=== PATIENT | male | born 2000 | race Asian ===

== ENCOUNTER 2020-10-08 10:37 | Emergency (ER) | payer OTHER, SELFPAY ==
--- NOTE | 2020-10-08 10:45 | ED.SKABFB ---
HPI - Skin/Abscess/Foreign Bdy General Chief complaint: Skin/Abscess/Foreign Body Stated complaint: Insect Bite Time Seen by Provider: 10/08/20 10:46 Source: patient and RN notes reviewed Mode of arrival: ambulatory Limitations: no limitations History of Present Illness HPI narrative: 20-year-old male presents to the [facility] with complaints of an insect bite to the lower left back. States that he was stung yesterday. Wanted know what he was stung by. No redness or swelling noted. No trouble breathing. No chest pain or shortness of breath. Related Data Home Medications Medication Instructions Recorded Confirmed famotidine 20 mg PO DAILY 10/08/20 10/08/20 Allergies Allergy/AdvReac Type Severity Reaction Status Date / Time No Known Allergies Allergy Verified 10/08/20 10:53 Review of Systems Review of Systems: All systems reviewed & are unremarkable except as noted in HPI and below Constitutional: Constitutional: Reports no additional constitutional complaints Eyes: Eyes: Reports no additional eye complaints ENT: Reports system reviewed and no additional complaints, except as documented Cardiovascular: Cardiovascular: Reports no additional cardiovascular complaints Respiratory: Respiratory: Reports no additional respiratory complaints Gastrointestinal: Gastrointestinal: Reports no additional gastrointestinal complaints Musculoskeletal: Musculoskeletal: Reports no additional musculoskeletal complaints Integumentary/Breasts: Skin/Breast: Reports as per HPI Comments: Insect sting left lower back Neurologic: Reports system reviewed and no additional complaints, except as documented Psychiatric: Psychiatric: Reports no additional psychiatric complaints Allergic/Immunologic: Allergic/Immunologic: Reports no additional allergic/immunologic complaints PMFSH Past Medical History Medical History Asthma Surgical History Surgical History (Updated 10/08/20 @ 18:03 by Diane Hess) No significant past surgical history Comments At the time of my signature, I reviewed and agree with the nursing past medical, surgical, social, and family history. There is no relevant family history pertinent to the patient complaint. Exam Const: General: healthy appearing, no acute distress and alert Nutritional Appearance: well nourished Orientation/consciousness: patient oriented x3 Limitations: no limitations HENMT: Head: normal to inspection Ears: external ears normal, TM's normal bilaterally and EAC's normal Eyes: Conjunctivae: conjunctivae normal Pupils: Equal, round and reactive pupils present Neck: Neck: normal visual inspection, no lymphadenopathy and no meningeal signs Chest: Chest palpation & inspection: normal inspection of the chest Resp: Effort & Inspection: normal respiratory effort and no use of accessory muscles Auscultation: clear to auscultation bilaterally, no crackles, no rales, no rhonchi and no wheezes Cardio: Rate: regular rate Rhythm: regular rhythm GI: GI Palp: Yes Soft to palpation and No Tenderness to palpation present (GI) Back/Spine/Pelvis: Back: no CVA tenderness Skin: General skin exam: normal color Rashes: no rashes Wounds: no wounds Other: Left lower back very small, less than half centimeter round area, patient states that he was stung. No redness, signs of infection, signs of inflammation. Neuro: General: patient oriented x3, moves all extremities, no meningeal signs and no focal motor deficits Speech: normal speech Gait exam (Neuro): Normal gait present Extrem: General: normal to inspection and no pedal edema Psych: Appearance: grossly normal and well kempt Mental Status: mental status grossly normal Affect: normal affect Attitude: cooperative Thought content: Yes Normal thought content present Course Course Emergency Course: Discharge instructions reviewed with patient, as well as provided in writing per hans
[2020-10-08 10:49] VITALS: BP 106/71; PULSE 79; RESP 18; TEMP 36.7; O2SAT 99
== END 2020-10-08 11:14 | disposition home or self-care (01) ==
PROVIDERS: Emergency Provider Nurse Practitioner; PCP Physician Assistant
DX: S30.860A Insect bite (nonvenomous) of lower back and pelvis, initial encounter (principal); W57.XXXA Bitten or stung by nonvenomous insect and other nonvenomous arthropods, initial encounter; J45.909 Unspecified asthma, uncomplicated
CPT/HCPCS: 99202; G0463

== ENCOUNTER 2023-07-31 16:57 | Emergency (ER) | payer OTHER, SELFPAY ==
[2023-07-31 17:06] VITALS: BP 115/70; PULSE 88; RESP 16; TEMP 36.8; O2SAT 100
--- NOTE | 2023-07-31 17:08 | ED.SKABFB ---
HPI - Skin/Abscess/Foreign Bdy General Chief complaint: Skin/Abscess/Foreign Body Stated complaint: Face/Skin Irritation Time Seen by Provider: 07/31/23 17:07 Source: patient and RN notes reviewed Mode of arrival: ambulatory Limitations: no limitations History of Present Illness HPI narrative: 23-year-old male presents with concern for painful bumps on his face. He reports they had purulent green drainage. He reports there on bilateral cheeks. Denies fever, facial swelling. MD complaint: abscess/boil Related Data Home Medications Medication Instructions Recorded Confirmed albuterol sulfate 90 mcg/actuation 2 puff inhalation QID PRN sob 07/31/23 07/31/23 aerosol inhaler Allergies Allergy/AdvReac Type Severity Reaction Status Date / Time Penicillins AdvReac Rash Verified 07/31/23 17:10 Review of Systems Review of Systems: CONSTITUTIONAL: Denies malaise, chills, sweats, or fever. EYES: Denies redness, or discharge. ENT: Denies rhinorrhea, congestion, swollen lips, swollen tongue CARDIOVASCULAR: Denies chest pain, palpitations, or edema. RESPIRATORY: Denies cough or dyspnea. GASTROINTESTINAL: Denies abdominal pain, nausea, vomiting SKIN: Reports painful bumps on his face MUSCULOSKELETAL: Denies joint pain or myalgia. NEUROLOGIC: Denies headache. All systems reviewed & are unremarkable except as noted in HPI and below PMFSH Past Medical History Medical History Asthma Surgical History Surgical History (Updated 10/08/20 @ 18:03 by Diane Hess, [employer]) No significant past surgical history Comments At time of signature, agree with nursing past medical, surgical, social and family history. There is no relevant family history pertinent to the presenting complaint Exam Narrative: GENERAL: Well-appearing, well-nourished, and in no acute distress. HEAD: Normocephalic, atraumatic. EYES: PERRLA, conjunctivae clear, and EOMI. ENT: Mucous membranes moist. Oropharynx without edema, erythema or lesions. NECK: Supple. No lymphadenopathy CHEST: Clear to auscultation. No respiratory distress. HEART: Regular rate and rhythm. SKIN: Warm, dry. Patient has old acne scars, healing acne, left side of patient's face has 1 large 1 cm raised red area omits the German old acne scars, the right side of the face has two 1 cm raised red tender areas limit soled acne scars NEURO: Alert and oriented x3. PSYCH: Normal mood and affect Course Course Emergency Course: Patient is aware of diagnosis, understands and agrees to treatment plan. Anticipatory guidance given. Patient agrees to follow-up as directed and is aware of reasons to seek care at the emergency department. Portions of this record may have been created with voice recognition software Level of Care: Express Care Visit Vital Signs Vital signs: Vital Signs Temperature 98.2 F 07/31/23 17:06 Pulse Rate 88 07/31/23 17:06 Respiratory Rate 16 07/31/23 17:06 Blood Pressure 115/70 07/31/23 17:06 Pulse Oximetry 100 07/31/23 17:06 Oxygen Delivery Room Air 07/31/23 17:06 Temperature 98.2 F 07/31/23 17:06 Pulse Rate 88 07/31/23 17:06 Respiratory Rate 16 07/31/23 17:06 Blood Pressure 115/70 07/31/23 17:06 Pulse Oximetry 100 07/31/23 17:06 Oxygen Delivery Room Air 07/31/23 17:06 Reviewed. MDM - Skin/Abscess/Foreign Bdy MDM Narrative Medical decision making narrative: Does not appear at this time to be erythema multiforme, bullous, SJS, TEN; no evidence at this time to suggest RMSF, endocarditis or Lyme disease; patient looks well, nontoxic and is tolerating oral intake; no neurologic signs or symptoms; no headache, photophobia or neck pain; afebrile; appropriate for initial outpatient treatment; discussed the importance of follow-up, patient agrees; question, viral exanthema, contact dermatitis, allergic dermatitis, eczema, urticaria, abscess, acne. No soft palate or
== END 2023-07-31 17:25 | disposition home or self-care (01) ==
PROVIDERS: Emergency Provider Nurse Practitioner; PCP Physician Assistant
DX: L70.0 Acne vulgaris (principal); J45.909 Unspecified asthma, uncomplicated
CPT/HCPCS: 99213; G0463

== ENCOUNTER 2024-05-27 10:54 | Emergency (ER) | payer OTHER, SELFPAY ==
--- NOTE | 2024-05-27 11:04 | ED_ITS ---
HPI - Extremity Injury (Upper) General Chief Complaint: Extremity Problem,Nontraumatic Stated Complaint: right shoulder pain Time Seen by Provider: 05/27/24 10:56 Source: patient Mode of arrival: ambulatory Limitations: no limitations History of Present Illness HPI narrative: Patient is a 24-year-old male who presents with right shoulder pain for 12 days. Patient states he was lifting a TV at work and putting in a cart, and then later that evening his shoulder started hurting. Patient denies any obvious injury or popping. Patient states he use Tylenol ibuprofen and the pain subsided for several days. Patient states he was grocery shopping yesterday and caring multiple heavy bags. That evening shoulder pain started again. Patient denies any pain with range of motion but states there has been throbbing ache when sitting still for extended amount of time. Pain is also present on palpation. Related Data Home Medications ?Medication ?Instructions ?Recorded ?Confirmed ?Last Taken ?Type albuterol sulfate 90 mcg/actuation 2 puff inhalation QID PRN sob 07/31/23 05/27/24 Unknown History aerosol inhaler latanoprost 0.005 % eye drops 1 drp EACH EYE QPM 05/27/24 05/27/24 Unknown History Allergies Allergy/AdvReac Type Severity Reaction Status Date / Time Penicillins AdvReac Rash Verified 05/27/24 10:58 Review of Systems Review of Systems: All systems reviewed & are unremarkable except as noted in HPI and below Constitutional: Constitutional: Denies body ache(s), Denies chills, Denies fatigue, Denies fever(s), Denies headache(s), Denies malaise and Denies weakness Eyes: Eyes: Denies blurry vision, Denies irritation and Denies loss of vision ENT: Denies otalgia, Denies headache(s), Denies nasal discharge, Denies sinus pain and Denies sore throat Cardiovascular: Cardiovascular: Denies chest pain, Denies irregular heart r hythm and Denies dyspnea Respiratory: Respiratory: Denies dyspnea Gastrointestinal: Gastrointestinal: Denies abdominal pain, Denies melena, Denies hematochezia, Denies diarrhea, Denies nausea and Denies vomiting Musculoskeletal: Musculoskeletal: Denies back pain, Denies myalgias and Reports arthralgias Integumentary/Breasts: Skin/Breast: Denies pruritus and Denies rash Neurologic: Denies headache(s), Denies loss of vision and Denies weakness Psychiatric: Psychiatric: Reports no additional psychiatric complaints Endocrine: Endocrine: Denies fatigue PMFSH Past Medical History Medical History Asthma Surgical History Surgical History No significant past surgical history Comments At time of signature, agree with nursing past medical, surgical, social and family history. There is no relevant family history pertinent to the presenting complaint. Exam Const: General: cooperative, healthy appearing, comfortable, no acute distress and well nourished Nutritional Appearance: well nourished Baltazar entation/consciousness: patient oriented x3 Limitations: no limitations HENMT: Head: normal to inspection, normocephalic and atraumatic Ears: hearing grossly normal bilaterally and external ears normal Face/Nose/Sinus: Normal external nose present, normal facial exam and face symmetric Face and sinus: normal facial exam and face symmetric Mouth: Yes lip normal Eyes: General: appearance normal, both eyes and all related structures Alignment and Position: alignment normal and position normal Periorbital: periorbital findings normal Eyelids: eyelids normal Pupils: Equal, round and reactive pupils present EOM: EOMs intact bilaterally Neck: Neck: normal visual inspection, full ROM and supple Chest: Chest palpation & inspection: normal inspection of the chest Resp: Effort & Inspection: normal respiratory effort and able to speak in complete sentences Auscultation: clear to auscultation bilaterally Cardio: Rate: regular rate Rhythm: regular rhythm Heart sounds: S1 normal heart sound present and S2 normal heart sound present GI: Inspection: normal to inspection Back/Spine/Pelvis: Cervical Spine: cervical muscular tenderness (right side extending to shoulder) Skin: General skin exam: normal color and no rashes or lesions noted Neuro: General: patient oriented x3 and moves all extremities Cranial nerves: Yes Equal, round and reactive pupils present Speech: normal speech Gait exam (Neuro): Normal gait present Extrem: General: normal to inspection, full ROM and no edema Right upper extremity: shoulder/upper arm normal to inspection, axillary nerve sensory function normal and normal ROM; no tenderness, no swelling and no deformity and elbow/forearm normal to inspection and normal ROM; no tenderness and no swelling Psych: Appearance: grossly normal and well kempt Mental Status: mental status grossly normal Speech and movement: Normal speech and movement present Affect: normal affect Attitude: cooperative Thought process: Normal thought process present Course Course Emergency Course: Patient is aware of diagnosis, understands and agrees to treatment plan. Anticipatory guidance given. Patient agrees to follow-up as directed and is aware of reasons to seek care at the emergency department. Portions of this record may have been created with voice recognition software Level of Care: Express Care Visit Vital Signs Vital signs: Reviewed MDM - Extremity Injury (Upper) MDM Narrative Medical decision making narrative: Pt well hydrated appearing, in no respiratory distress, hemodynamically stable. Recommend supportive care. The patient is stable at time of discharge the clinical impression was discussed and the patient was given the opportunity to ask questions, which were addressed as completely as possible given the information available at present. Anticipatory guidance and return to care precautions were discussed and the importance of primary care follow-up was stressed and encouraged. The patient voiced understanding of the plan, indications to return, and the need for follow-up. Exam findings show no acute concerns or changes Patient is appropriate for outpatient treatment and follow-up. Differential Diagnosis Differential diagnosis: Likely dislocation of shoulder, fracture of clavicle and other (Shoulder strain, cervical muscle strain, rotator cuff injury) Medical Records Attestation: I reviewed the patient's medical records. Discharge Plan Discharge Clinical Impression: Muscle strain of right shoulder Patient Disposition: Home Condition: Stable Instructions: Muscle Strain (ED) Additional Instructions: Avoid activities that cause pain until the pain subsides. Ice to the area 20-30 minutes 4-6 times a day For pain, you may take: Tylenol 650-1000mg by mouth every 4-6 hours. Do not exceed 4000mg in 24 hours. Advil (Ibuprofen) 600 mg by mouth every 6 hours. Do not exceed 2400mg in 24 hours. 8 AM: Tylenol 11 AM: Ibuprofen 2 PM: Tylenol 5 PM: Ibuprofen 8 PM: Tylenol 11 PM: Ibuprofen 2 AM: Tylenol 5 AM: Ibuprofen Use lidocaine patches 12 hours on and 12 hours off. Use muscle relaxers as needed. They may make you drowsy to do not drive or operate machinery while taking Follow up with your primary care provider if the condition is not improving within 1 week. If the condition worsens with numbness, tingling, decrease sensation with weakness seek treatment in the emergency room immediately. Patient Language: Estonian Prescriptions: New baclofen 10 mg tablet 10 mg PO BID Qty: 10 0RF lidocaine 5 % adhesive patch,medicated 1 patch topical DAILY Qty: 15 0RF Rx Instructions: leave on most painful area for up to 12 hrs No Action latanoprost 0.005 % drops 1 drp EACH EYE QPM albuterol sulfate 90 mcg/actuation HFA aerosol inhaler 2 puff INHALATION QID PRN (Reason: sob) clindamycin-benzoyl peroxide 1.2 %(1 % base) -5 % gel 1 applic topical QPM Qty: 45 0RF Follow-up/Referrals: Coy,ILA Newman [Primary Care Provider] - 3 Days Stand Alone Forms: Work/School Release IP Time of Disposition: 11:21
[2024-05-27 11:05] VITALS: BP 111/77; PULSE 84; RESP 20; TEMP 36.8; O2SAT 100
== END 2024-05-27 11:29 | disposition home or self-care (01) ==
PROVIDERS: Emergency Provider Nurse Practitioner Family; PCP Physician Assistant
DX: S46.911A Strain of unspecified muscle, fascia and tendon at shoulder and upper arm level, right arm, initial encounter (principal); X58.XXXA Exposure to other specified factors, initial encounter; J45.909 Unspecified asthma, uncomplicated
CPT/HCPCS: 99213; G0463

== ENCOUNTER 2024-06-15 10:59 | Emergency (ER) | payer OTHER, SELFPAY ==
--- NOTE | 2024-06-15 11:02 | ED.URI ---
HPI - URI/Sore Throat General Chief Complaint: Upper Respiratory Infection Stated Complaint: throat hurts Time Seen by Provider: 06/15/24 11:02 Source: patient Mode of arrival: ambulatory Limitations: no limitations History of Present Illness HPI Narrative: Everett is a 24-year-old male patient presenting to the clinic today with complaints of sore throat x5 days. He reports occasionally it hurts when he swallows but denies any constant pain. Pain is more on the right side of his throat. Denies any fevers, chills, body aches, runny nose, cough, or nasal drainage. Related Data Home Medications ?Medication ?Instructions ?Recorded ?Confirmed ?Last Taken ?Type albuterol sulfate 90 mcg/actuation 2 puff inhalation QID PRN sob 07/31/23 05/27/24 Unknown History aerosol inhaler latanoprost 0.005 % eye drops 1 drp EACH EYE QPM 05/27/24 05/27/24 Unknown History Allergies Allergy/AdvReac Type Severity Reaction Status Date / Time Penicillins AdvReac Rash Verified 05/27/24 10:58 Review of Systems Review of Systems: Pertinent positives per HPI. Patient denies any fever, chills, rash, headache, visual changes, dizziness, cough, shortness of breath, chest pain, palpitations, nausea, vomiting, diarrhea, constipation, abdominal pain, or any urinary issues. PMFSH Past Medical History Medical History Asthma Surgical History Surgical History No significant past surgical history Comments At the time of my signature, I reviewed and agree with the nursing past medical, surgical, social, and family history. There is no relevant family history pertinent to the patient complaint. Exam Narrative: General: Well-developed, well nourished, in no apparent distress Head: Normocephalic, atraumatic Eyes: Pupils equally round and reactive to light bilaterally, EOM intact, sclera and conjunctive clear, no discharge, lids normal Ears: TMs intact and clear, ear canals clear, no drainage, grossly hearing normal. Nose: Nares patent, no discharge, no inflammation, no sinus tenderness. Mouth: Oral pharynx mildly red without lesions or masses, good dentition, MMM. Neck: Supple, trachea midline, no enlargement of anterior or posterior cervical nodes, no thyroid masses or goiter palpable. Cardio: Regular rate and rhythm, s1 and s2 normal, no murmur appreciated. Resp: Clear to auscultation bilaterally, no rhonchi, rales, wheezing or rubs Course Course Emergency Course: Portions of this record may have been created with voice recognition software. Level of Care: Express Care Visit Vital Signs Vital signs: Vital signs reviewed MDM - URI/Sore Throat MDM Narrative Medical decision making narrative: At the time of visit patient is resting comfortably on the exam table. Patient appears to be nontoxic. Labs: Strep test was negative in the clinic today. We will send strep for culture. Plan: I suspect patient has pharyngitis. Would recommend follow-up with his PCP to have his thyroid checked. Is reporting some pain to the right side of his throat near the thyroid gland. Supportive measures were discussed with the patient and they voiced understanding discharge instructions and agrees to treatment plan. Return precautions reviewed Differential Diagnosis Differential diagnosis: Likely upper respiratory infection, otitis media, sinusitis, viral infection, bronchitis, influenza, pharyngitis and other (COVID) Discharge Plan Discharge Clinical Impression: Pharyngitis Qualifiers: Pharyngitis/tonsillitis etiology: unspecified etiology Qualified Code(s): J02.9 - Acute pharyngitis, unspecified Patient Disposition: Home Condition: Stable Instructions: Antibiotic Form, Pharyngitis (ED) Additional Instructions: Strep test was negative in the clinic today. We will send strep for culture. Increase fluids and stay well hydrated Tylenol/motrin for pain/fever Flonase and OTC antihistamines as directed Vicks vapor rub to open sinuses Sinus rinses for congestion Cepacol spray, cough drops, throat lozenges, warm tea with honey/lemon, gargle salt water to soothe throat BRAT diet for diarrhea Clear liquids x 24 hours then advance as tolerated for nausea/vomiting Go to the ED if you develop a worsening in your condition- high fever not controlled by Tylenol or Motrin, dehydration, weakness, lethargy, shortness of breath, or chest pain. Follow up with your PCP in 3-5 days if symptoms persist. Patient Language: Serbian Prescriptions: No Action latanoprost 0.005 % drops 1 drp EACH EYE QPM baclofen 10 mg tablet 10 mg PO BID Qty: 10 0RF lidocaine 5 % adhesive patch,medicated 1 patch topical DAILY Qty: 15 0RF Rx Instructions: leave on most painful area for up to 12 hrs albuterol sulfate 90 mcg/actuation HFA aerosol inhaler 2 puff INHALATION QID PRN (Reason: sob) clindamycin-benzoyl peroxide 1.2 %(1 % base) -5 % gel 1 applic topical QPM Qty: 45 0RF Follow-up/Referrals: Coy,ILA Newman [Primary Care Provider] - Time of Disposition: 11:32 Quality NIHSS Nursing Documentation ED NIHSS nursing documentation: reviewed/agree
[2024-06-15 11:12] VITALS: BP 121/72; PULSE 78; RESP 18; TEMP 36.7; O2SAT 98
[2024-06-15 11:20] LABS: EDSTREPNEGPOS1 Negative (Negative)
== END 2024-06-15 11:40 | disposition home or self-care (01) ==
PROVIDERS: Emergency Provider Nurse Practitioner Family; PCP Physician Assistant
DX: J02.9 Acute pharyngitis, unspecified (principal); J45.909 Unspecified asthma, uncomplicated
CPT/HCPCS: 87081; 87880; 99213; G0463

== ENCOUNTER 2024-06-28 12:07 | Outpatient (CLI) | payer OTHER, SELFPAY ==
--- NOTE | ~2024-06-28 | XR_ITS ---
EXAM: XR shoulder RT min 2V DATE: 06/28/2024 12:36 HISTORY: Pain in rt shoulder, 05/15/24 NKI . COMPARISON: None available. FINDINGS: Normal mineralization. No fracture or dislocation. No lytic or blastic lesion. Joint space s are maintained. No erosion or periosteal change. Soft tissues within normal limits. IMPRESSION: Normal right shoulder radiograph findings. If pain persists or clinical suspicion of inju ry/abnormality is high, recommend MRI of the shoulder. Reviewed, dictated and finalized at location K. IMPRESSION: Normal right shoulder radiograph findings. If pain persists or clin ical suspicion of injury/abnormality is high, recommend MRI of the shoulder.
--- OUTSIDE RECORDS SUMMARY | 2024-06-28 12:15 | XMS_ITS | Data Portability ---
Author Organization [facility] Address [address] [place] [address] Care Team Providers Care Chief Dispatcher Service Name Role Phone VICENTE MANN Primary Care Provider Assessment No assessment recorded. Plan of Treatment Reminders Order Date Submit Date Provider Last Modified By Organization Details Last Modified Time Details Appointments ANY 15 2024 11:45A M ILA LEON Not available Not available Not available Lab CMP, serum or plasma 2023 024 SIVAKUMAR Greene, [address], [address], [place], [address], 03/08/2023 08:12:17 CBC w/ auto diff 2023 024 SIVAKUMARSIMI Greene, [address]22 [address], [address], [place], [address], 03/08/2023 08:12:17 lipid panel, serum 2023 024 SIVAKUMARSIMI Greene, [address], [address], [place], [address], 03/08/2023 08:12:16 HbA1c (hemoglob in A1c), blood 2023 024 SIVAKUMARSIMI Greene, [address]22 [address], [address], [place], [address], 03/08/2023 06:49:16 Referral dermatolo gist referral 2023 024 [email or web address] Shaista Lee MD (Dermatology) , [address], [place], [address], 08/26/2023 07:54:03 Procedures None recorded. Surgeries None recorded. Imaging None recorded. Medication Orders benzoyl peroxide 5 % topical cleanser 2023 024 [facility] [address], [place], [address], 09/24/2023 12:47:12 benzoyl peroxide 5 % topical cleanser 2023 024 [facility] [address], [place], [address], 08/11/2023 17:28:44 tretinoin 0.025 % topical cream 2023 024 [facility] [address], [place], [address], 08/11/2023 17:28:43 clindamyc in 1 % topical gel 2023 024 [facility] [address], [place], [address], 08/11/2023 17:28:43 albuterol sulfate HFA 90 mcg/actua tion aerosol inhaler 2023 024 [facility] [address], [place], [address], 03/05/2023 12:27:37 triamcino lone acetonide 0.1 % topical cream 2023 024 [facility] [address], [place], [address], 03/05/2023 12:27:36 Patient TargetsNo targets recorded. Patient Instructions Encounter Date Encounter Id Patient Instructions Last Modified By Organization Details Last Modified Time 01/24/2022 [id number] asthma in adults : care instructions Not available 01/24/2022 12:45:14 controlling your asthma: care instructions Not available 01/24/2022 12:45:15 03/05/2023 [id number] asthma in adults : care instructions Not available 03/05/2023 11:36:52 controlling your asthma: care instructions Not available 03/05/2023 11:36:52 08/11/2023 [id number] acne: care instructions Not available 08/12/2023 09:27:09 09/24/2023 [id number] acne: care instructions Not available 09/24/2023 12:47:04 - peroxide wash every other day - clinda gel twice daily - tretinoin at night only (will start every other night)as deactivated by light. He is advised sand which method to avoid over-drying. will increase dose after 4-8 weeks if tolerating well. Not available 09/24/2023 13:04:17 Reason for Referral Intertype Operator Referral for C ystic acne Referring Physician: Vicente Mann, Hospital Unit Coordinator, Encounter Date: 08/11/2023 Physical Therapist Referral for Pain of right shoulder region Referring Physician: Vicente Mann Hospital Unit Coordinator, Encounter Date: 06/28/2024 Results Created Date Observation Date Name Description Value Unit Range Abnormal Flag Note LastModifiedBy Organization Detail LastModifiedTime 03/07/19 24 03/08/2023 HEMOG LOBIN A1C hemoglobin A1C 5.7 % 4.8-5. 6 above high normal Predi abete s: 5.7 - 6.4 Diabe omar: >6.4 Glyce kacey contr ol for adult s with diabe omar: <7.0 Not Available [facility] ([facility]) [address] [facility], [place], [address], 03/08/2023 06:49:16 03/07/19 24 03/08/2023 LIPID PANEL cholesterol, total 148 mg/dL 100-19 9 Not Available [facility] ([facility]) [address] [facility] [facility], [place], [address], 03/08/2023 08:12:16 03/07/19 24 03/08/2023 LIPID PANEL triglyceride s 57 mg/dL 0-149 Not Available [facility]) [address] [facility] [place], [address], 03/08/2023 08:12:16 03/07/19 24 03/08/2023 LIPID PANEL HDL cholesterol 60 mg/dL >39 Not Available [facility] [address] [place], [address], 03/08/2023 08:12:16 03/07/19 24 03/08/2023 LIPID PANEL VLDL cholesterol brandy 12 mg/dL 5-40 Not Available [facility]) [address] [place], [address], 03/08/2023 08:12:16 03/07/19 24 03/08/2023 LIPID PANEL LDL chol calc ([facility]) 76 mg/dL 0-99 Not Available [facility]) [address] [place], [address], 03/08/2023 08:12:16 03/07/19 24 03/08/2023 COMP. METAB OLIC PANEL (14) glucose 99 mg/dL 70-99 Not Available [facility] ([facility]) [address] [place], [address], 03/08/2023 08:12:17 03/07/19 24 03/08/2023 COMP. METAB OLIC PANEL (14) BUN 8 mg/dL 6-20 Not Available [facility] ([facility]) [address] [place], [address], 03/08/2023 08:12:17 03/07/19 24 03/08/2023 COMP. METAB OLIC PANEL (14) creatinine 0.90 mg/dL 0.76-1 .27 Not Available [facility] ([facility]) [address] [place], [address], 03/08/2023 08:12:17 03/07/19 24 03/08/2023 COMP. METAB OLIC PANEL (14) eGFR 122 mL/mi n/1.7 3 >59 Not Available [facility] ([facility]) [address] [facility], [place], [address], 03/08/2023 08:12:17 03/07/19 24 03/08/2023 COMP. METAB OLIC PANEL (14) BUN/creatini ne ratio 9 9-20 Not Available [facility] ([facility]) [address] [facility], [place], [address], 03/08/2023 08:12:17 03/07/19 24 03/08/2023 COMP. METAB OLIC PANEL (14) sodium 139 mmol/ L 134-14 4 Not Available [facility] ([facility]) [address] [facility], [place], [address], 03/08/2023 08:12:17 03/07/19 24 03/08/2023 COMP. METAB OLIC PANEL (14) potassium 4.3 mmol/ L 3.5-5. 2 Not Available [facility] ([facility]) [address] [facility], [place], [address], 03/08/2023 08:12:17 03/07/19 24 03/08/2023 COMP. METAB OLIC PANEL (14) chloride 100 mmol/ L 96-106 Not Available [facility] ([facility]) [address] [facility], [place], [address], 03/08/2023 08:12:17 03/07/19 24 03/08/2023 COMP. METAB OLIC PANEL (14) carbon dioxide, total 26 mmol/ L 20-29 Not Available [facility] ([facility]) [address] [facility], [place], [address], 03/08/2023 08:12:17 03/07/19 24 03/08/2023 COMP. METAB OLIC PANEL (14) calcium 9.6 mg/dL 8.7-10 .2 Not Available [facility] ([facility]) [address] [place], [address], 03/08/2023 08:12:17 03/07/19 24 03/08/2023 COMP. METAB OLIC PANEL (14) protein, total 6.8 g/dL 6.0-8. 5 Not Available [facility] ([facility]) [address] [place], [address], 03/08/2023 08:12:17 03/07/19 24 03/08/2023 COMP. METAB OLIC PANEL (14) albumin 4.2 g/dL 4.3-5. 2 below low normal Not Available [facility] ([facility]) [address] [place], [address], 03/08/2023 08:12:17 03/07/19 24 03/08/2023 COMP. METAB OLIC PANEL (14) globulin, total 2.6 g/dL 1.5-4. 5 Not Available [facility] ([facility]) [address] [place], [address], 03/08/2023 08:12:17 03/07/19 24 03/08/2023 COMP. METAB OLIC PANEL (14) A/G ratio 1.6 1.2-2. 2 Not Available [facility] ([facility]) [address] [place], [address], 03/08/2023 08:12:17 03/07/19 24 03/08/2023 COMP. METAB OLIC PANEL (14) bilirubin, total 0.7 mg/dL 0.0-1. 2 Not Available [facility] ([facility]) [address] [place], [address], 03/08/2023 08:12:17 03/07/19 24 03/08/2023 COMP. METAB OLIC PANEL (14) alkaline phosphatase 55 IU/L 44-121 Not Available [facility]) [address] [facility], [place], [address], 03/08/2023 08:12:17 03/07/19 24 03/08/2023 COMP. METAB OLIC PANEL (14) AST (SGOT) 13 IU/L 0-40 Not Available [facility] ([facility]) [address] [facility], [place], [address], 03/08/2023 08:12:17 03/07/19 24 03/08/2023 COMP. METAB OLIC PANEL (14) ALT (SGPT) 8 IU/L 0-44 Not Available [facility] ([facility]) [address] [facility], [place], [address], 03/08/2023 08:12:17 03/07/19 24 03/08/2023 CBC WITH DIFFE RENTI AL/PL ATELE T WBC 5.2 x10e3 /uL 3.4-10 .8 Not Available [facility] ([facility]) [address] [place], [address], 03/08/2023 08:12:17 03/07/19 24 03/08/2023 CBC WITH DIFFE RENTI AL/PL ATELE T RBC 5.34 x10e6 /uL 4.14-5 .80 Not Available [facility] ([facility]) [address] [facility], [place], [address], 03/08/2023 08:12:17 03/07/19 24 03/08/2023 CBC WITH DIFFE RENTI AL/PL ATELE T hemoglobin 15.0 g/dL 13.0-1 7.7 Not Available [facility] ([facility]) [address] [place], [address], 03/08/2023 08:12:17 03/07/19 24 03/08/2023 CBC WITH DIFFE RENTI AL/PL ATELE T hematocrit 45.6 % 37.5-5 1.0 Not Available [facility] ([facility]) [address] [facility], [place], [address], 03/08/2023 08:12:17 03/07/19 24 03/08/2023 CBC WITH DIFFE RENTI AL/PL ATELE T MCV 85 fL 79-97 Not Available [facility] ([facility]) [address] [facility], [place], [address], 03/08/2023 08:12:17 03/07/19 24 03/08/2023 CBC WITH DIFFE RENTI AL/PL ATELE T MCH 28.1 pg 26.6-3 3.0 Not Available [facility] ([facility]) [address] [facility], [place], [address], 03/08/2023 08:12:17 03/07/19 24 03/08/2023 CBC WITH DIFFE RENTI AL/PL ATELE T MCHC 32.9 g/dL 31.5-3 5.7 Not Available [facility] ([facility]) [address] [facility], [place], [address], 03/08/2023 08:12:17 03/07/19 24 03/08/2023 CBC WITH DIFFE RENTI AL/PL ATELE T RDW 12.5 % 11.6-1 5.4 Not Available [facility] ([facility]) [address] [facility], [place], [address], 03/08/2023 08:12:17 03/07/19 24 03/08/2023 CBC WITH DIFFE RENTI AL/PL ATELE T platelets 308 x10e3 /uL 150-45 0 Not Available [facility] ([facility]) [address] [facility], [place], [address], 03/08/2023 08:12:17 03/07/19 24 03/08/2023 CBC WITH DIFFE RENTI AL/PL ATELE T neutrophils 64 % notest ab. Not Available [facility] ([facility]) [address] [facility], [place], [address], 03/08/2023 08:12:17 03/07/19 24 03/08/2023 CBC WITH DIFFE RENTI AL/PL ATELE T lymphs 24 % notest ab. Not Available [facility] ([facility]) [address] [facility], [place], [address], 03/08/2023 08:12:17 03/07/19 24 03/08/2023 CBC WITH DIFFE RENTI AL/PL ATELE T monocytes 8 % notest ab. Not Available [facility] ([facility]) [address] [facility], [place], [address], 03/08/2023 08:12:17 03/07/19 24 03/08/2023 CBC WITH DIFFE RENTI AL/PL ATELE T eos 3 % notest ab. Not Available [facility] ([facility]) [address] [facility], [place], [address], 03/08/2023 08:12:17 03/07/19 24 03/08/2023 CBC WITH DIFFE RENTI AL/PL ATELE T basos 1 % notest ab. Not Available [facility] ([facility]) [address] [place], [address], 03/08/2023 08:12:17 03/07/19 24 03/08/2023 CBC WITH DIFFE RENTI AL/PL ATELE T neutrophils (absolute) 3.4 x10e3 /uL 1.4-7. 0 Not Available [facility] ([facility]) [address] [place], [address], 03/08/2023 08:12:17 03/07/19 24 03/08/2023 CBC WITH DIFFE RENTI AL/PL ATELE T lymphs (absolute) 1.3 x10e3 /uL 0.7-3. 1 Not Available [facility] ([facility]) [address] [place], [address], 03/08/2023 08:12:17 03/07/19 24 03/08/2023 CBC WITH DIFFE RENTI AL/PL ATELE T monocytes(ab solute) 0.4 x10e3 /uL 0.1-0. 9 Not Available [facility] ([facility]) [address] [facility], [place], [address], 03/08/2023 08:12:17 03/07/19 24 03/08/2023 CBC WITH DIFFE RENTI AL/PL ATELE T eos (absolute) 0.2 x10e3 /uL 0.0-0. 4 Not Available [facility] ([facility]) [address] [facility], [place], [address], 03/08/2023 08:12:17 03/07/19 24 03/08/2023 CBC WITH DIFFE RENTI AL/PL ATELE T baso (absolute) 0.0 x10e3 /uL 0.0-0. 2 Not Available [facility] ([facility]) [address] [facility], [place], [address], 03/08/2023 08:12:17 03/07/19 24 03/08/2023 CBC WITH DIFFE RENTI AL/PL ATELE T immature granulocytes 0 % notest ab. Not Available [facility] ([facility]) [address] [facility], [place], [address], 03/08/2023 08:12:17 03/07/19 24 03/08/2023 CBC WITH DIFFE RENTI AL/PL ATELE T immature grans (abs) 0.0 x10e3 /uL 0.0-0. 1 Not Available [facility] ([facility]) [address] [place], [address], 03/08/2023 08:12:17 Result Notes None recorded. Problems Name Problem SNOMED Code Status Onset Date Resolution Date Notes Provider Name and Address Organization Details Recorded Time Asthma 868810998 Active 020 Not Available [facility], [facility] 1 13:56:13 Eczema 79894087 Active 020 Not Available [facility], [facility] 1 13:56:13 Glaucoma 61531228 Active 022 ILA LEON Attn: Accounting ,[address], [place], [address] , [facility] 2 10:06:55 Cystic acne 31312798 Active 024 ILA LEON Attn: Accounting ,[address], [place], [address] , [facility] 4 09:27:11 Problem Notes None recorded. Medical Equipment None Reported. Allergies Allergen ID Allergen Name Allergen Category Reaction Reaction Severity Criticality Documentation Date Start Date Code Code System Note Provider Name and Address Organization Details Recorded Time 036137 Product containin g penicilli n (product) medicatio n hives Not available Not available 02/25/2019 55486 8001 SNOMED Tyrell Marie MA [facility], [place] - [facility] 0 11:48:05 Medications Name Sig Start Date Stop Date Status Note LastModified by Organization Details LastModified Time cyclobenzap rine 10 mg tablet TAKE 1 TABLET BY MOUTH AT NIGHT BEFORE BEDTIME active Not Available Not Available No t Available latanoprost 0.005 % eye drops INSTILL 1 DROP INTO BOTH EYES AT NIGHT TIME active Not Available Not Available No t Available clindamycin HCl 300 mg capsule TAKE 1 CAPSULE BY MOUTH EVERY 8 HOURS FOR 7 DAYS 08/10 completed Not Available Not Available Not Available cetirizine 10 mg tablet TAKE 1 TABLET BY MOUTH EVERY DAY active Not Available Not Available No t Available tretinoin 0.025 % topical cream APPLY TO AFFECTED AREA EVERY DAY AT BEDTIME active Not Available Not Available No t Available meloxicam 15 mg tablet TAKE ONE TABLET DAILY, UNTIL COMPLETE active Not Available Not Available No t Available triamcinolo ne acetonide 0.1 % topical cream APPLY THIN COAT TO AFFECTED AREA TWICE A DAY active Not Available Not Available No t Available famotidine 20 mg tablet TAKE 1 TABLET BY MOUTH TWICE A DAY 03/05 completed Not Available Not Available Not Available clindamycin 1 % topical gel APPLY THIN COAT TO AFFECTED AREA TWICE A DAY active Not Available Not Available No t Available baclofen 10 mg tablet TAKE 1 TABLET BY MOUTH TWICE A DAY active Not Available Not Available No t Available cephalexin 500 mg capsule Take 1 capsule twice a day by oral route for 7 days. 01/09 completed Not Available Not Available Not Available lidocaine 5 % topical patch APPLY 1 PATCH TO SKIN DAILY LEAVE ON MOST PAINFUL AREA FOR UP TO 12 HRS active Not Available Not Available No t Available omeprazole 20 mg capsule,del ayed release Take 1 capsule every day by oral route for 30 days. 12/13 completed Not Available Not Available Not Available benzoyl peroxide 5 % topical cleanser APPLY SPARINGLY TO AFFECTED AREA EVERY DAY active Not Available Not Available No t Available scopolamine 1 mg over 3 days transdermal patch Apply 1 patch every 72 hours by transderm al route as needed. 12/13 completed Not Available Not Available Not Available methylpredn isolone 4 mg tablets in a dose pack TAKE 6 TABLETS ON DAY 1 DIRECTED ON PACKAGE AND DECREASE BY 1 TAB EACH DAY FOR A TOTAL OF 6 DAYS 06/28 completed Not Available Not Available Not Available albuterol sulfate HFA 90 mcg/actuati on aerosol inhaler INHALE 2 PUFFS EVERY 4-6 HOURS BY INHALATIO N ROUTE NEEDED. active Not Available Not Available No t Available fluticasone propionate 50 mcg/actuati on nasal spray,suspe nsion [place] 1 spray every day by intranasa l route. 2024 active Not Available Not Available Not Avai lable Vitals Date Recorded Body height Body mass index (BMI) Body weight Heart rate Oxygen saturation Oxygen saturation in Arterial blood by Pulse oximetry Systolic blood pressure Diastolic blood pressure Provider Name and Address Organization Details Last Updated DateTime 2 160.02 cm 22.5 kg/m2 46597.2 3 g 94 /min 100 % 100 % 114 mm[Hg] 68 mm[Hg] Adilia Almeida [place] - [facility] 2 12:22:47 Date Recorded Body height Body mass index (BMI) Body weight Heart rate Oxygen saturation Oxygen saturation in Arterial blood by Pulse oximetry Systolic blood pressure Diastolic blood pressure Provider Name and Address Organization Details Last Updated DateTime 4 160.02 cm 21.6 kg/m2 77377.2 7 g 88 /min 99 % 99 % 113 mm[Hg] 74 mm[Hg] Adilia Almeida MA [facility] 4 11:26:07 Date Recorded Body height Body mass index (BMI) Body weight Heart rate Oxygen saturation Oxygen saturation in Arterial blood by Pulse oximetry Systolic blood pressure Diastolic blood pressure Provider Name and Address Organization Details Last Updated DateTime 4 160.02 cm 20.9 kg/m2 02007.9 g 84 /min 98 % 98 % 115 mm[Hg] 73 mm[Hg] Adilia Almeida MA [facility] 4 17:11:52 Date Recorded Body height Body mass index (BMI) Body weight Heart rate Oxygen saturation Oxygen saturation in Arterial blood by Pulse oximetry Systolic blood pressure Diastolic blood pressure Provider Name and Address Organization Details Last Updated DateTime 4 160.02 cm 20.7 kg/m2 16293.3 1 g 102 /min 97 % 97 % 112 mm[Hg] 72 mm[Hg] Adilia Almeida MA [facility] 4 12:35:56 Date Recorded Body height Body mass index (BMI) Body weight Heart rate Oxygen saturation Oxygen saturation in Arterial blood by Pulse oximetry Systolic blood pressure Diastolic blood pressure Provider Name and Address Organization Details Last Updated DateTime 5 160.02 cm 20.9 kg/m2 36781.9 g 67 /min 97 % 97 % 107 mm[Hg] 72 mm[Hg] Adilia Almeida MA [facility] 5 12:25:41 Social History Question Answer Notes LastModified by Organizat ion Details LastModified Time Tobacco Smoking Status Never Smoker Tyrell Marie MA [facility], [facility] 02/25/2019 11:48:51 Do You Have An Advance Directive? No Information not available 02/25/2019 What Is Your Level Of Caffeine Consumption? None Information not available 02/25/2019 How Much Tobacco Do You Chew? None Information not available 02/25/2019 Which Illicit Or Recreational Drugs Have You Used? Pt Denies Information not available 02/25/2019 Hard Of Hearing Or Deaf In One Or Both Ears? No Information not available 02/25/2019 Legally Blind In One Or Both Eyes? No Information no t available 02/25/2019 Marital Status Single Informatio n not available 02/25/2019 What Was The Date Of Your Most Recent Tobacco Screening? 06/28/2024 Information not available 06/28/2024 At What Age Did You Start Smoking Tobacco? 0 N/a Information not available 01/10/2020 How Much Tobacco Do You Smoke? No Information not available 02/25/2019 Has Tobacco Cessation Counseling Been Provided? Yes Information not available 06/28/2024 On What Date Was Tobacco Cessation Counseling Provided? 06/28/2024 Information not available 06/28/2024 How Many Years Have You Smoked Tobacco? 0 Information not available 01/10/2020 Sex: Male Functional Status Question Answer Note LastModified by Organizat ion Details LastModified Time What is your level of alcohol consumption? None Information not available 02/25/2019 Do you or have you ever used smokeless tobacco? Never used smokeless tobacco Information not available 02/25/2019 Do you or have you ever used e-cigarettes or vape? Never used electronic cigarettes Information not available 02/25/2019 Mental Status None recorded. Family History Relationship Description Onset Age of this Age Resolved Age Notes LastModified by Organization Details LastModified Time Mother Hypertensive disorder operezma Not available 2019 11:48:32 Father Malignant neoplasm of prostate operezma Not available 2019 11:48:42 Father Malignant neoplasm of lung Not available 2023 12:24:10 Medical History Condition Response Coronary Artery Disease N Other N Atrial Fibrillation N High Blood Pressure N Kidney or Bladder Problems N Thyroid Problems N GI Problems N Depression N COPD N Blood Clots N Skin Problems N Anemia N Heart Attack (RI) N Anxiety Disorder N Diabetes N Muscle, Joint, or Bone Problems N Seizures/Epilepsy N Acid Reflux (GERD) N Cancer N Stroke N Asthma N Allergies N High Cholesterol N Hepatitis N Liver Disease N Headaches N Heart Failure N Osteoporosis N Immunizations Vaccine Type Date Status Note Provider Nam e and Address Organization Details Recorded Time COVID-19, mRNA, LNP-S, PF, 30 mcg/0.3 mL dose 1 completed Adilia Almeida MA null, [place] - [facility] 06/28/2024 12:20:56 HPV, quadrivalent 5 completed Not Available [facility], [facility] 06/28/2024 12:15:26 meningococcal MCV4P 5 completed Not Available [facility] 06/28/2024 12:15:26 HPV, quadrivalent 6 completed Not Available [facility] 06/28/2024 12:15:26 COVID-19, mRNA, LNP-S, PF, 30 mcg/0.3 mL dose 1 completed Not Available [facility] 06/28/2024 12:15:26 COVID-19, mRNA, LNP-S, PF, 30 mcg/0.3 mL dose 1 completed Not Available [facility] 06/28/2024 12:15:26 Tdap 4 completed ILA LEON Attn: Accounting[address] [place], [address], [facility] 03/05/2023 12:22:14 Past Encounters Encounter ID Performer Location Encounter Start Date Encounter Closed Date Diagnosis/Indication Diagnosis SNOMED-CT Code Diagnosis ICD10 Code Diagnosis Note [id number] ILA LEON [facility] [address] [place] [address] 02/25/2019 11:32:35 03/01/2019 09:52:01 Gastroesophageal reflux disease 445884865 K21.9 patient presents with acid reflux that started when he ate spicy food on new years. Since he has had belching and bloating. denies vomiting or dark stools. No fever. - omeprazole 20 mg qd x 1 month- f/u if no improvemen t or worsening- educated on GERD foods [id number] ILA LEON [facility] [address] [place] [address] 04/01/2019 13:57:38 04/04/2019 09:29:51 Infection of skin and/or subcutaneous tissue 80010966 L08.9 allergy to amoxicilli n, 10% eractivity to cephaloosp oring. Stop if develops new rash. Eczema 83692302 L30.9 patietn with hx of eczema. - triamcinol one bid x one week- aquaphor after shower and then apply vaseline on top- pat dry after showers- may wear gloves at [facility] [id number] ILA LEON [facility] [address] [place] [address] 01/10/2020 08:48:18 01/11/2020 09:21:12 Gastroesophageal reflux disease 666518251 K21.9 refills. switching to famotidine from omeprazole . - famotidine 20 mg- f/u if no improvemen t or worsening- educated on GERD foods Eczema 15211179 L30.9 patietn with hx of eczema. - triamcinol one bid x one week- aquaphor after shower and then apply vaseline on top- pat dry after showers- may wear gloves at [facility] [id number] ILA LEON [facility] [address] [place] [address] 12/24/2020 10:24:01 12/25/2020 15:30:28 Asthma 052175301 J45.909 controlled at this time. no hospitaliz ations or ER visits. uses inhaler on rare occasion. Gastroesop hageal reflux disease 426259091 K21.9 patient presents with acid reflux that started when he ate spicy food on new years. Since he has had belching and bloating. denies vomiting or dark stools. No fever. - omeprazole 20 mg qd x 1 month- f/u if no improvemen t or worsening- educated on GERD foods- avoid eating after 7pm- wait 2 hours after eating before laying down [id number] ILA LEON [facility] [address] [place] [address] 06/18/2021 11:32:33 06/19/2021 10:11:08 Seasonal allergic rhinitis 868417611 J30.2 allergies and post-nasal drip causing dry cough x 2 weeks. On exam turbinates are edematous and pale. throat slightly irritated without swelling. - zyrtec- flonase- f/u prn Asthma [id number] J45.90 9 controlled at this time. no hospitaliz ations or ER visits. uses inhaler on rare occasion. refill today [id number] ILA LEON [facility] [address] [place] [address] 12/13/2021 12:03:55 12/16/2021 10:13:53 Seasonal allergic rhinitis [id number] J30.2 refill - zyrtec- flonase- f/u prn Asthma [id number] J45.90 9 states he uses inhaler 2 puffs every night because he feels he may need it. will f/u on this in one month- lungs clear on exam Otalgia of left ear [id number] H92.02 left ear pain x 1 week with resolution of sx x 3 days. On exam TM visualized with all landmarks. canals are slightly irritated b/l w/o edema. No pain on exam. No cervical lymphadeno dafne. pharynx without erythema. [id number] ILA LEON [facility] [address] [place] [address] 01/24/2022 12:10:44 01/28/2022 15:37:25 Asthma [id number] J45.909 no longer using inhaler before bed and denies needing it.PEX: lungs are clear, RRR advised to only use it prnasthma is controlled , has not used it sicne last visitno hospitaliz ations in >1 year [id number] ILA LEON [facility] [address] [place] [address] 03/05/2023 11:16:45 03/05/2023 12:03:02 Asthma [id number] J45.909 controlled PEX: lungs are clear, RRR asthma is controlled , has not used it since last visitno hospitaliz ations in >1 year Adult heal th examination [id number] Z00.00 asthma/ecz sheri controlled labs to labcorptet anus shot Administra tion of diphtheria, pertussis, and tetanus vaccine [id number] Z23 given today Eczema [id number] L30.9 patietn with hx of eczema. - triamcinol one bid x one week- aquaphor after shower and then apply vaseline on top- pat dry after showers- may wear gloves at night for hands [id number] Fritz manzo MD [facility] [address] [place] [address] 08/11/2023 17:06:42 08/14/2023 22:01:51 Cystic acne 34171607 L70.0 pt with hx of cystic acne and extensive scarring and mutiple black heads - peroxide wash every other day- clinda gel bid- tretinoin at night only (will start every other night)as deactivate d by light. He is advised sand which method to avoid over-dryin g. will increase dose after 4-8 weeks if tolerating well.- derm referral- he advised he WILL peel due to skin cell turnover * stressed suncreen use [id number] Kishore Long MD [facility] [address] [place] [address] 09/24/2023 12:30:28 09/24/2023 12:46:18 Cystic acne [id number] L70.0 pt with hx of cystic acne and extensive scarring and mutiple black heads. some improvemen t with clindagel only. has not started other treatment. will start and f/u prn. - peroxide wash every other day- clinda gel bid- tretinoin at night only (will start every other night)as deactivate d by light. He is advised sand which method to avoid over-dryin g. will increase dose after 4-8 weeks if tolerating well.- derm referral- he advised he WILL peel due to skin cell turnover * stressed suncreen use [id number] Kishore Long MD [facility] [address] [place] [address] 06/28/2024 12:15:11 06/28/2024 12:50:31 Pain of right shoulder region [id number] M25.511 Seasonal allergy [id number] J30.2 refill - zyrtec- flonase- f/u prn Health Concerns Section Related Observation LastModified by Organization Detai ls LastModified Time None Recorded Concern Status LastModified by Organization Details LastModified Time None Recorded Advance Directives Directive N: Payers Encounter Date Sequence Insurance Name Policy Number Policy Whitt Covered Member ID Whitt Member ID Guarantor Name 01/24/2022 1 [facility] ON OR AFTER 08/09/20 (MEDICAID REPLACEMENT - HMO) Everett Hollyvinita [id number] Everett Leon Aclan 03/05/2023 1 [facility] ON OR AFTER 08/09/20 (MEDICAID REPLACEMENT - HMO) Everett Jean-Baptiste [id number] Everett Leon Aclan 08/11/2023 1 [facility] ON OR AFTER 08/09/20 (MEDICAID REPLACEMENT - HMO) Everett Hollyvinita [id number] Everett Leon Aclan 09/24/2023 1 [facility] ON OR AFTER 08/09/20 (MEDICAID REPLACEMENT - HMO) Everett Hollyvinita [id number] Everett Leon Aclan Notes Date Note Type Note Provider Name and Address Organization Details Recorded Time 01/24/2022 text/html Everett is a 22 YO M here for asthma f/u patient states at last visit he inhales two puffs of rescue inhaler every night before bed just inc ase. He denied having cough, cp, sob, wheezing. He stopped the medication and states he has not needed it. has not used his rescue in over two weeks. ILA LEON Attn: Accounting, [address] [place], [address], [facility] 01/24/2022 12:46:17 03/05/2023 text/html Everett is a 23 YO M here for wellvisit asthma: controlled. no hospitalizations. Has not had to use his inhaler.eczema: controlled. would like refill just in case as worsens in winter.denies depression/anxiety . sleeping well. c/o of back pain x 2 weeks after lifting microwave at [employer] while working. Pain has subsided. only feels it when getting up from sitting. He did ice/heat. denies numbness/tingling, weakness. ILA LEON Attn: Accounting[address], [place], [address], [place] [facility] 03/05/2023 12:30:09 08/11/2023 text/html Everett is here for ER F/U He has hx of cystic acne. He had one on R cheek that drained green discharge leading him to ER. He took clindamycin abx and area had healed. He wants to see dermatology. He would like to start somethin for acne now. ILA LEON Attn: Accounting[address], [place], [address], [place] [facility] 08/12/2023 09:30:49 09/24/2023 text/html Everett is here for ER F/U He has hx of cystic acne and has been on clinda for last month. never started tretinoin. never picked up the benzoyl as pharmacy did not have it at pick up driver. He will go pick up driver today. He is happy with his results so far. ILA LEON Attn: Accounting[address], [place], [address], [facility] 09/24/2023 13:04:32
== END 2024-06-28 12:08 | disposition home or self-care (01) ==
PROVIDERS: PCP Physician Assistant; Visit Provider Physician Assistant
DX: M25.511 Pain in right shoulder (principal)
CPT/HCPCS: 73030

== ENCOUNTER 2024-09-01 11:00 | Outpatient (RCR) | payer OTHER, SELFPAY ==
--- NOTE | 2024-07-14 17:33 | OPREHPOC ---
Outpatient Therapy Plan of Care This is a Multidisciplinary Plan of Care that may contain components documented by all disciplines (PT, OT, and ST.) PT Problem 1 PT Problem #1 Knowledge Deficit PT Goal 1 Goal / Goal Update [place] with HEP Target Visit 4 PT Goal 2 Goal / Goal Update Report no pain greater than 1/10 for 2 consecutive weeks Target Visit 8 PT Problem 2 PT Problem #2 Impaired Strength PT Goal 1 Goal / Goal Update 1. Improve gross right shoulder strength to 5/5 to improve gross stability of the shoulder Target Visit 8 PT Problem 3 PT Problem #3 Impaired Range of Motion PT Goal 1 Goal / Goal Update 1. Demonstrate no pain at terminal motion of flexion and external rotation Target Visit 8
--- NOTE | 2024-07-14 17:33 | PTOPEVAL1 ---
Assessment and note entered by Antoine Hinton, PT Evaluation Information Assessment Status Evaluation ICD-10 Condition Codes (PT) Pain in right shoulder M25.511 Onset May 2024 Subjective Information Reports that pain seemed to start when he was twisting a TV at work. Reports that he has since been having posterior shoulder pain. Reports that most of the pain is in the back of the shoulder and occasionally in the back of the shoulder blade . Occasional pain at rest but most of the pain is with use of the shoulder. Patient is right handed. Reported Pain Level Pain Score 0: Self Report Assessment PT Clinical Summary Patient presents with signs and symptoms consistent with impingement syndrome and tendonitis of shoulder. Patient will benefit form skilled therapy to improve end range of motion, functional lifting, and gross strength to resume ADLs pain free. Plan of Care Interventions Electrical Stimulation,Hot Pack/Cold Pack,Manual Therapy,Neuro Re-education,Therapeutic Activities, Therapeutic Exercise PT Services Indicated Yes Treatment Frequency and 2x/week for 8 visits Duration These treatments will address the objective and functional deficits as defined above. The patient will be advanced safely and appropriately in order for the patient to progress towards his/her prior level of function. Additional exercises will be introduced and as well as a comprehensive home exercise program upon discharge, if needed, ?to ensure carryover of functional gains achieved in the clinic. This treatment plan has been reviewed and agreement upon by the patient.
--- NOTE | 2024-09-01 11:49 | PTOPDC ---
Assessment and note entered by Antoine Hinton, PT Evaluation Information Assessment Status Discharge ICD-10 Condition Codes (PT) Pain in right shoulder M25.511 Onset May 2024 Subjective Information Reports that overall he has seen progress. Still feels substantial weakness in shoulder. He has been avoiding equipment lifting and has decreased as much repetitive overhead motion as well. Still has some trouble when reaching behind his back as well. Much more tame than when he first started in therapy. Still has pain when he puts pressure on the shoulder. Pain is not waking him up at night. Reported Pain Level Pain Score 1: Self Report Assessment PT Clinical Summary Patient has met all goals for therapy at this time and is suitable for discharge to [facility]. He demonstrates improved strength and ROM with minimal discomfort throughout these motion. Suitable for discharge to [facility] at this time. Plan of Care PT Services Indicated Yes
== END 2024-09-01 14:17 | disposition home or self-care (01) ==
LOC: ANHPT 11:00
PROVIDERS: PCP Physician Assistant; Visit Provider Physician Assistant
DX: M25.511 Pain in right shoulder (principal)
CPT/HCPCS: 97110; 97112; 97140; 97161; 97530

== ENCOUNTER 2024-10-20 15:25 | Emergency (ER) | payer OTHER, SELFPAY ==
[2024-10-20 15:35] VITALS: BP 106/69; PULSE 82; RESP 18; TEMP 36.6; O2SAT 99
--- NOTE | 2024-10-20 16:26 | ED.SKABFB ---
HPI - Skin/Abscess/Foreign Bdy General Chief complaint: Skin/Abscess/Foreign Body Stated complaint: Left Hand Finger Pain Time Seen by Provider: 10/20/24 15:30 Source: patient and RN notes reviewed Mode of arrival: ambulatory Limitations: no limitations History of Present Illness HPI narrative: 24-year-old male [facility] and left middle finger injury. Patient said he cut at work about 5 days ago. Patient has a small cut near the tip of his left middle finger. Patient reports increased redness swelling denies any pain. She also reports clear yellow drainage. Patient denies any other symptoms. Patient's tetanus up-to-date. Patient says pruritic and continues to pick at it. Related Data Home Medications ?Medication ?Instructions ?Recorded ?Confirmed ?Last Taken ?Type albuterol sulfate 90 mcg/actuation 2 puff inhalation QID PRN sob 07/31/23 06/15/24 Unknown History aerosol inhaler latanoprost 0.005 % eye drops 1 drp EACH EYE QPM 05/27/24 06/15/24 Unknown History Allergies Allergy/AdvReac Type Severity Reaction Status Date / Time Penicillins AdvReac Rash Verified 05/27/24 10:58 Review of Systems Review of Systems: CONSTITUTIONAL: Denies fever, chills, or sweats. EYES: Denies visual changes, redness, or discharge. ENT: Denies rhinorrhea, congestion, sore throat, or otalgia. CARDIOVASCULAR: Denies chest pain, palpitations, or edema. RESPIRATORY: Denies cough or dyspnea. GASTROINTESTINAL: Denies abdominal pain, nausea, vomiting, or diarrhea. GENITOURINARY: Denies dysuria or hematuria. SKIN: Denies rash, wound, or itching. Positive for wound and redness and swelling. MUSCULOSKELETAL: Denies back pain, joint pain, or myalgia. NEUROLOGIC: Denies headache, numbness, or weakness. PSYCHIATRIC: Denies anxiety or depression. All other systems reviewed are negative, except as documented in HPI. [facility], [facility] Past Medical History Medical History Asthma Surgical History Surgical History No significant past surgical history Comments At the time of my signature, I reviewed and agree with the nursing past medical, surgical, social, and family history. There is no relevant family history pertinent to the patient complaint. Exam Narrative: GENERAL: This is a well-nourished, well-developed adult, in no apparent distress. They are non ill-appearing, nontoxic appearing. HEAD: normocephalic, atraumatic. EYES: Sclera clear/white. Vision is grossly intact. Conjunctiva normal. Extraocular movement intact. EARS: External ears normal Hearing grossly intact. NOSE: External nose normal THROAT: Mucous membranes moist NECK: Neck supple CARDIOVASCULAR: Regular rate and rhythm RESPIRATORY: Respiratory rate normal, respiratory effort nonlabored, no respiratory distress NEURO: awake, alert, and oriented to person, place and time. There were no obvious focal neurologic abnormalities. EXTREMITIES: Left middle finger: No obvious deformity, bruising Small laceration to the medial dorsal side is the tip of the left middle finger. Measuring less than approximately 0.5 cm. Serous drainage present. No exudate. Tip of the left middle finger is erythematous extending to the PIP joint. No area fluctuance, no induration. Nontender through full range of motion. No bony tenderness. Capillary refill less than 3 seconds. Left heel Pulse 2 +palpable. Normal sensation. Neurovascular status intact distal injury. Radial and ulnar nerve distribution intact. No nail bed injury. Nail bed in plate are intact. BACK: Nontender without deformity. Course Course Emergency Course: Portions of this record may have been created with voice recognition software Level of Care: [facility] Visit Vital Signs Vital signs: Vital Signs Temperature 97.8 F 10/20/24 15:35 Pulse Rate 82 10/20/24 15:35 Respiratory Rate 18 10/20/24 15:35 Blood Pressure 106/69 10/20/24 15:35 Pulse Oximetry 99 10/20/24 15:35 Oxygen Delivery Room Air 10/20/24 15:35 Temperature 97.8 F 10/20/24 15:35 Pulse Rate 82 10/20/24 15:35 Respiratory Rate 18 10/20/24 15:35 Blood Pressure 106/69 10/20/24 15:35 Pulse Oximetry 99 10/20/24 15:35 Oxygen Delivery Room Air 10/20/24 15:35 Reviewed MDM - Skin/Abscess/Foreign Bdy MDM Narrative Medical decision making narrative: Patient likely has small paronychia no evidence of abscess formation. Since patient persistently picks at it will cover him for infection with doxycycline. Will also Prescribe mupirocin ointment. Wound is superficial, no x-ray indicated. No bony tenderness. Discussed physical exam findings. Advised supportive measures and signs/symptoms to go to the ER. Pt is appropriate for outpt treatment and f/u. Differential Diagnosis Differential diagnosis: Likely abscess of skin or subcutaneous tissue, cellulitis, impetigo and other (Paronychia) Critical Care Time Critical Care Time Critical Care Time: No Discharge Plan Discharge Clinical Impression: Paronychia of finger of left hand Patient Disposition: Home Condition: Stable Instructions: Antibiotic Form, Paronychia (ED) Additional Instructions: Soak the affected finger and warm soapy water for 10-15 minutes in apply mupirocin ointment twice a day for the next week. Take doxycycline as directed, please wear sunscreen for a to be outside while taking doxycycline. Please keep the wound dry and covered until it is healed completely. May take Zyrtec as needed for itchiness. Instruction on the bottle. You may also apply hydrocortisone cream as needed for itchiness follow instructions on the bottle. Follow-up with PCP in 3-5 days to make sure the wound is healing well. He developed worsening redness, swelling, pain, green/yellow drainage, fevers, or any serious concerns please return to the ER immediately. Patient Language: Belgian Prescriptions: New doxycycline hyclate 100 mg capsule 100 mg PO BID 5 Days Qty: 10 0RF mupirocin [Centany] 2 % ointment 1 applic topical BID 7 Days Qty: 22 0RF No Action latanoprost 0.005 % drops 1 drp EACH EYE QPM albuterol sulfate 90 mcg/actuation HFA aerosol inhaler 2 puff INHALATION QID PRN (Reason: sob) clindamycin-benzoyl peroxide 1.2 %(1 % base) -5 % gel 1 applic topical QPM Qty: 45 0RF Follow-up/Referrals: Coy,ILA Newman [Primary Care Provider, Family Practice] Time of Disposition: 15:47
== END 2024-10-20 16:16 | disposition home or self-care (01) ==
PROVIDERS: PCP Physician Assistant
DX: L03.012 Cellulitis of left finger (principal); J45.909 Unspecified asthma, uncomplicated
CPT/HCPCS: 99213; G0463

== ENCOUNTER 2025-01-18 10:09 | Emergency (ER) | payer OTHER, SELFPAY ==
--- NOTE | 2025-01-18 10:12 | ED_ITS ---
HPI - General Adult General Chief complaint: Skin/Abscess/Foreign Body Stated complaint: Skins Issues Source: patient Mode of arrival: ambulatory Limitations: no limitations History of Present Illness HPI narrative: Pt is a 24 y/o male presenting with c/o skin issue. Pt reports swelling to L. cheek x 2 days with spontaneous bloody discharge. Denies hx of similar but does report extensive hx of acne. No tx initiated [employer]. NO additional complaints. Related Data Home Medications ?Medication ?Instructions ?Recorded ?Confirmed ?Last Taken ?Type albuterol sulfate 90 mcg/actuation 2 puff inhalation Q ID PRN sob 07/31/23 06/15/24 Unknown History aerosol inhaler latanoprost 0.005 % eye drops 1 drp EACH EYE QPM 05/2706/15/24 Unknown History Allergies Allergy/AdvReac Type Severity Reaction Status Date / Time Penicillins AdvReac Rash Verified 01/18/25 10:10 Review of Systems Review of Systems: CONSTITUTIONAL: Denies body aches, fever, chills, or sweats. EYES: Denies visual changes, redness, or discharge. ENT: Denies rhinorrhea, congestion, sore throat, or otalgia. CARDIOVASCULAR: Denies chest pain, palpitations, or edema. RESPIRATORY: Denies cough or dyspnea. GASTROINTESTINAL: Denies abdominal pain, nausea, vomiting, or diarrhea. GENITOURINARY: Denies dysuria or hematuria. SKIN: Reports swelling to L. cheek. Denies rash, itching MUSCULOSKELETAL: Denies back pain, joint pain, or myalgia. NEUROLOGIC: Denies headache, numbness, tingling, or weakness. PSYCH: Denies depression or anxiety. All systems reviewed & are unremarkable except as noted in HPI and below PMFSH Past Medical History Medical History Asthma Surgical History Surgical History No significant past surgical history Exam Narrative: GENERAL: Well-appearing, well-nourished, and in no acute distress. HEAD: Normocephalic, atraumatic. EYES: EOMI. No redness or drainage. Conjunctivae normal. ENT: Mucous membranes pink and moist. NECK: Normal AROM. Supple. CHEST: No respiratory distress. HEART: Regular rate SKIN: Warm, dry, no rash. Capillary refill normal. Normal skin turgor. dime sized carbuncle noted to the L. cheek without associated erythema NEURO: No focal deficits. Alert and oriented x3. Gait steady. PSYCH: Normal affect. No signs of depression or anxiety. Course Course Level of Care: Express Care Visit Vital Signs Vital signs: Vital Signs Temperature 99.2 F 01/18/25 10:17 Pulse Rate 78 01/18/25 10:17 Respiratory Rate 18 01/18/25 10:17 Blood Pressure 107/66 01/18/25 10:17 Pulse Oximetry 97 01/18/25 10:17 Oxygen Delivery Room Air 01/18/25 10:17 Temperature 99.2 F 01/18/25 10:17 Pulse Rate 78 01/18/25 10:17 Respiratory Rate 18 01/18/25 10:17 Blood Pressure 107/66 01/18/25 10:17 Pulse Oximetry 97 01/18/25 10:17 Oxygen Delivery Room Air 01/18/25 10:17 Procedures Abscess I/D face: Date of Incision: 01/18/25 Time of Incision: 10:20 Side (if applicable): left Sedation/analgesia: none Local Anesthetic: none Technique: needle aspiration (single puncture with 18g needle) Amount of fluid expressed (mL): 2 Irrigation: No Packing used?: none I&D Results: Pus and Blood Abcess I&D Additional Comments: Pt tolerated well without immediate complication. MDM Differential Diagnosis Differential Diagnosis: abscess/furuncle/carbuncle/cellulitis Discharge Plan Discharge Clinical Impression: Abscess of external cheek, left Patient Disposition: Home Condition: Stable Instructions: Antibiotic Form, Abscess (ED) Additional Instructions: Go straight to ER should your symptoms become worse or should any new symptoms develop Patient Language: Wolof Prescriptions: New doxycycline hyclate 100 mg capsule 100 mg PO DAILY 5 Days Qty: 5 0RF clindamycin-benzoyl peroxide 1-5 % gel 1 applic topical BID Qty: 25 0RF No Action latanoprost 0.005 % drops 1 drp EACH EYE QPM albuterol sulfate 90 mcg/actuation HFA aerosol inhaler 2 puff INHALATION QID PRN (Reason: sob) clindamycin-benzoyl peroxide 1.2 %(1 % base) -5 % gel 1 applic topical QPM Qty: 45 0RF mupirocin [Centany] 2 % ointment 1 applic topical BID 7 Days Qty: 22 0RF Follow-up/Referrals: Ivory,ILA Alicia [Primary Care Provider, Unknown] - 01/19/25 Time of Disposition: 10:17
[2025-01-18 10:17] VITALS: BP 107/66; PULSE 78; RESP 18; TEMP 37.3; O2SAT 97
== END 2025-01-18 10:25 | disposition home or self-care (01) ==
PROVIDERS: Emergency Provider Registered Nurse; PCP Physician Assistant
DX: L02.01 Cutaneous abscess of face (principal); J45.909 Unspecified asthma, uncomplicated
CPT/HCPCS: 10060; 99213; G0463